=== PATIENT | male | born 1955 | race Caucasian/White ===

== ENCOUNTER 2017-04-29 09:34 | Inpatient (IN) | payer SELFPAY ==
[2017-04-29] MEDS ORDERED: Midazolam HCl 2 mg/2 ml Vial ONE (10:26)
[2017-04-29] MEDS ORDERED: Fentanyl 100 MCG/2 ML VIAL ONE ×2 (10:26→16:27)
[2017-04-29] MEDS ORDERED: Lidocaine 1% w/Epinephrine 1:200K 30 ML VIAL ONE (10:38)
[2017-04-29] MEDS ORDERED: Chlorhexidine Gluconate 15 ML UDCUP SSP ONE (10:38)
[2017-04-29] MEDS ORDERED: Lidocaine Viscous Sol 2% 15 ml UD Cup ONE (10:43)
[2017-04-29] MEDS ORDERED: Oxymetazoline HCl 0.05% ( 15 ML ) ONE ×2 (11:45→12:46)
[2017-04-29] MEDS ORDERED: Clindamycin/D5W 900 mg/50 ml Premix Bag ONE (12:07)
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
[2017-04-29] MEDS ORDERED: Bacitracin Zinc Ointment 30 gm TUBE ONE (13:13)
[2017-04-29] MEDS ORDERED: Morphine Sulfate 2 MG/ML SYRINGE SLOW IVP PRN (14:13)
[2017-04-29] MEDS ORDERED: Promethazine HCl 25 MG/ML VIAL SLOW IVP PRN (14:13)
[2017-04-29] MEDS ORDERED: Ondansetron HCl/PF 4 MG/2 ML Vial IVP PRN (14:13)
[2017-04-29] MEDS ORDERED: Promethazine HCl 25 MG/ML VIAL IM PRN (14:13)
[2017-04-29] MEDS ORDERED: ePHEDrine/0.9% NaCl/PF SYRINGE 50 mg/10 ml ONE ×2 (15:26)
[2017-04-29] MEDS ORDERED: Lidocaine 1% PF 5 ML VIAL ONE (15:26)
[2017-04-29] MEDS ORDERED: Calcium Chloride 1 GM/10 ML Abboject SYRINGE ONE (15:26)
[2017-04-29] MEDS ORDERED: PHENYLEPHRINE-NS 100 MCG/ML 10 ML SYRINGE ONE (15:26)
[2017-04-29] MEDS ORDERED: Propofol 200 MG/20 ML VIAL ONE (15:26)
[2017-04-29] MEDS ORDERED: Ondansetron HCl/PF 4 MG/2 ML Vial ONE (15:26)
[2017-04-29] MEDS ORDERED: Dexamethasone 20 MG/5 ML VIAL ONE (15:26)
[2017-04-29] MEDS ORDERED: Dextrose 50% Abboject 50 ML SYRINGE SLOW IVP PRN (19:54)
[2017-04-29] MEDS ORDERED: Sodium Chloride 0.9% 1,000 ML IV SCH (19:54)
[2017-04-29] MEDS ORDERED: Morphine 4 MG/ML VIAL SLOW IVP PRN ×2 (19:54→20:31)
[2017-04-29] MEDS ORDERED: Dextrose 5% in Water 1,000 ML IV PRN (19:54)
[2017-04-29] MEDS ORDERED: Ondansetron HCl/PF 4 MG/2 ML Vial SLOW IVP PRN (20:33)
[2017-04-29] MEDS ORDERED: Dextrose 5 %-0.45 % NaCl 1,000 ML IV SCH (20:45)
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
[2017-04-29] MEDS ORDERED: Hydrocodone-Acetamin 15 ML UDCUP PO PRN (21:41)
[2017-04-29] MEDS: Oxymetazoline HCl 0.05% ( 15 ML ) NASAL SCH (21:55)
[2017-04-29] MEDS: Chlorhexidine Gluconate 15 ML UDCUP SSP SCH (21:55)
[2017-04-29] MEDS: Clindamycin/D5W 900 MG in Premix Bag 1 BAG IVPB SCH (21:56)
[2017-04-29] MEDS ORDERED: Ibuprofen 100 MG/5 ML UDCUP PO SCH (22:00)
[2017-04-29] MEDS ORDERED: Acetaminophen 650 MG/20.3 ML UDCUP PO SCH (22:00)
[2017-04-30] MEDS: Dexamethasone 4 mg/ml Vial SLOW IVP SCH ×4 (00:17→18:36)
[2017-04-30] MEDS: Acetaminophen 650 MG/20.3 ML UDCUP PO SCH ×3 (06:00→17:08)
[2017-04-30] MEDS: Clindamycin/D5W 900 MG in Premix Bag 1 BAG IVPB SCH ×2 (06:00→12:21)
[2017-04-30] MEDS: Ibuprofen 100 MG/5 ML UDCUP PO SCH ×2 (08:58→16:00)
[2017-04-30] MEDS: Chlorhexidine Gluconate 15 ML UDCUP SSP SCH ×2 (08:58→14:27)
[2017-04-30] MEDS: Oxymetazoline HCl 0.05% ( 15 ML ) NASAL SCH (08:59)
[2017-04-30] MEDS ORDERED: Tamsulosin HCl 0.4 MG CAP PO SCH (09:00)
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
[2017-04-30 16:01] VITALS: BP 132/82; TEMP 98
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
== END 2017-04-30 18:55 | disposition home or self-care (01) | DRG 132 ==
LOC: ERS 09:34 → ERHOLD 10:10 → OBSVTOIN 10:10 → SURG A 18:44
PROVIDERS: ADMIT Surgery; ATTEND Surgery
PROC: 0NSV04Z Reposition Left Mandible with Internal Fixation Device, Open Approach (ICD-10-PCS; principal; 2017-04-29)
PROC: 0NST34Z Reposition Right Mandible with Internal Fixation Device, Percutaneous Approach (ICD-10-PCS; 2017-04-29)
PROC: 0NSBXZZ Reposition Nasal Bone, External Approach (ICD-10-PCS; 2017-04-29)
PROC: 0CDXXZ0 Extraction of Lower Tooth, Single, External Approach (ICD-10-PCS; 2017-04-29)
DX: S02.652A Fracture of angle of left mandible, initial encounter for closed fracture (principal); I10 Essential (primary) hypertension; S00.83XA Contusion of other part of head, initial encounter; S02.2XXA Fracture of nasal bones, initial encounter for closed fracture; R33.9 Retention of urine, unspecified; S00.81XA Abrasion of other part of head, initial encounter; S00.91XA Abrasion of unspecified part of head, initial encounter; S00.93XA Contusion of unspecified part of head, initial encounter; S02.621A Fracture of subcondylar process of right mandible, initial encounter for closed fracture; K02.9 Dental caries, unspecified
CPT/HCPCS: 70486; 99285; C1713; G0390; J1100; J2001; J2250; J2405; J2704; J3010; J3490